=== PATIENT | female | born 1975 | race Caucasian/White ===

== ENCOUNTER 2019-07-03 14:17 | Outpatient (REF) | payer MEDICAID, SELFPAY ==
[2019-07-03 22:06] LABS: Abs Immature Grans 0.01 k/cumm (0.0-0.09); Absolute Basophil Count 0.01 k/cumm (0.0-0.2); Absolute Lymphocyte Count 1.43 k/cumm (1.2-3.4); Absolute Monocyte Count 0.61 k/cumm (0.11-0.7); Basophils % 0.2; Eosinophils % 1.5; HCT 43.1 % (36.0-46.0); Immature Grans % 0.2 %; Lymphocytes % 21.5; Mean Corp. HGB Concentration 32.5 g/dL (32.0-36.0); Mean Corpuscular Hemoglobin 29.5 pg (27.0-33.0); Mean Corpuscular Volume 90.9 fL (80-95); Mean Platelet Volume 11.3 fL (8.0-11.0); Monocytes % 9.2; Neutrophils % 67.4; Platelet Count 309 x1000/uL (130-400); RBC 4.74 m/cumm (4.00-5.20); RBC Distribution Width 13.5 % (11.7-14.6); White Blood Cell Count 6.66 k/cumm (4.4-10.8)
[2019-07-03 22:35] LABS: TSH 4.05 uIU/mL (0.36-3.74)
[2019-07-05 11:33] LABS: FSH 6.1 mIU/mL (See Note)
== END 2019-07-03 14:37 ==
LOC: NCHCN 14:17
PROVIDERS: PCP Nurse Practitioner Family; Visit Provider Nurse Practitioner Family
DX: R61 Generalized hyperhidrosis (principal)
CPT/HCPCS: 83001; 84443; 85025

== ENCOUNTER 2019-10-06 09:50 | Outpatient (REF) | payer MEDICAID, SELFPAY ==
[2019-10-06 21:19] LABS: FREE T4 1.09 ng/dL (0.76-1.46)
[2019-10-11 09:18] LABS: Thyroglobulin Antibody 109 U/mL (<=60); Thyroperoxidase Antibody 680 U/mL (<=60)
== END 2019-10-06 10:10 ==
LOC: NCHCN 09:50
PROVIDERS: PCP Nurse Practitioner Family; Visit Provider Nurse Practitioner Family
DX: R61 Generalized hyperhidrosis (principal)
CPT/HCPCS: 86376; 84439; 84443

== ENCOUNTER 2019-12-29 14:47 | Outpatient (REF) | payer MEDICAID, SELFPAY ==
[2019-12-29 21:11] LABS: TSH 1.77 uIU/mL (0.36-3.74)
== END 2019-12-29 15:07 ==
LOC: NCHCN 14:47
PROVIDERS: PCP Nurse Practitioner Family; Visit Provider Nurse Practitioner Family
DX: E03.9 Hypothyroidism, unspecified (principal)
CPT/HCPCS: 84443

== ENCOUNTER 2020-01-22 19:06 | Outpatient (REF) | payer MEDICAID, SELFPAY ==
[2020-01-24 16:01] LABS: Patient Race White; SARS-CoV-2 RNA Undetected (Undetected); SARS-CoV-2 Specimen Source Nasal
== END 2020-01-22 19:26 ==
LOC: NCHCN 19:06
PROVIDERS: PCP Nurse Practitioner Family; Visit Provider Nurse Practitioner Family
DX: J06.9 Acute upper respiratory infection, unspecified (principal)
CPT/HCPCS: U0003

== ENCOUNTER 2021-02-28 10:17 | Outpatient (REF) | payer MEDICAID, SELFPAY ==
[2021-02-28 14:43] LABS: Anion Gap 8.8 mmol/L (3-11); BUN 20 mg/dL (7-18); CO2 27.2 mmol/L (21.0-32.0); CREATININE 0.9 mg/dL (0.55-1.02); Calcium 8.8 mg/dL (8.5-10.1); Calculated LDL 200 mg/dL (<100); Chloride 103 mmol/L (98-107); Cholesterol 272 mg/dL (<200); Glucose 104 mg/dL (74-106); HDL Cholesterol 48 mg/dL (40-60); Potassium 4.3 mmol/L (3.5-5.1); Sodium 139 mmol/L (136-145); TSH 1.64 uIU/mL (0.36-3.74); Triglyceride 122 mg/dL (<150)
== END 2021-02-28 10:18 | disposition home or self-care (01) ==
LOC: NCHCN 10:17
PROVIDERS: PCP Nurse Practitioner Family; Visit Provider Nurse Practitioner Family
DX: E03.9 Hypothyroidism, unspecified (principal); Z13.220 Encounter for screening for lipoid disorders
CPT/HCPCS: 80048; 80061; 84443

== ENCOUNTER 2021-07-15 18:45 | Outpatient (REF) | payer MEDICAID, SELFPAY ==
[2021-07-15 14:48] LABS: Abs Immature Grans 0.01 10^3/uL (0.0-0.06); Absolute Basophil Count 0.01 10^3/uL (0.0-0.2); Absolute Lymphocyte Count 1.36 10^3/uL (1.2-3.4); Absolute Monocyte Count 0.63 10^3/uL (0.1-0.8); Absolute Neutrophil Count 5.06 10^3/uL (1.2-6.7); Basophils % 0.1; Eosinophils % 1.4; HCT 44.2 % (36.0-46.0); Immature Grans % 0.1; MCH 29.1 pg (27.0-33.0); MCHC 31.7 % (32.0-36.0); MCV 92 fL (80-95); MPV 11.5 fL (8.0-11.0); Monocytes % 8.8; Neutrophils % 70.6; Platelet Count 278 10^3/uL (130-400); RBC 4.81 10^6/uL (3.93-5.22); RDW 12.7 % (11.7-14.6); RDW-SD 43.4 fL; WBC 7.17 10^3/uL (4.4-10.8)
[2021-07-15 15:11] LABS: ALT 27 U/L (14-59); AST 16 U/L (15-37); Albumin 3.9 g/dL (3.4-5.0); Alkaline Phosphatase 52 U/L (46-116); Anion Gap 5.8 mmol/L (3-11); BUN 12 mg/dL (7-18); Bilirubin, Total 0.3 mg/dL (0.2-1.0); CO2 28.2 mmol/L (21.0-32.0); CREATININE 0.7 mg/dL (0.55-1.02); Calcium 8.8 mg/dL (8.5-10.1); Chloride 106 mmol/L (98-107); Glucose 89 mg/dL (74-106); Potassium 4.5 mmol/L (3.5-5.1); Sodium 140 mmol/L (136-145); Total Protein 6.6 g/dL (6.4-8.2)
== END 2021-07-15 18:46 | disposition home or self-care (01) ==
LOC: NCHCN 18:45
PROVIDERS: PCP Nurse Practitioner Family; Visit Provider Nurse Practitioner Family
DX: B97.89 Other viral agents as the cause of diseases classified elsewhere (principal)
CPT/HCPCS: 80053; 85025

== ENCOUNTER 2021-12-17 18:46 | Outpatient (REF) | payer MEDICAID, SELFPAY ==
[2021-12-17 14:00] LABS: Abs Immature Grans 0.02 10^3/uL (0.0-0.06); Absolute Basophil Count 0.03 10^3/uL (0.0-0.2); Absolute Lymphocyte Count 1.17 10^3/uL (1.2-3.4); Absolute Monocyte Count 0.62 10^3/uL (0.1-0.8); Absolute Neutrophil Count 4.55 10^3/uL (1.2-6.7); Basophils % 0.5; Eosinophils % 1.5; HCT 42.3 % (36.0-46.0); Immature Grans % 0.3; MCH 29.6 pg (27.0-33.0); MCHC 33.1 % (32.0-36.0); MCV 89 fL (80-95); MPV 11.4 fL (8.0-11.0); Monocytes % 9.6; Neutrophils % 70.1; Platelet Count 308 10^3/uL (130-400); RBC 4.73 10^6/uL (3.93-5.22); RDW 12.6 % (11.7-14.6); RDW-SD 41.6 fL; WBC 6.49 10^3/uL (4.4-10.8)
[2021-12-17 14:30] LABS: Anion Gap 7.2 mmol/L (3-11); BUN 15 mg/dL (7-18); CO2 26.8 mmol/L (21.0-32.0); CREATININE 0.7 mg/dL (0.55-1.02); Calcium 8.9 mg/dL (8.5-10.1); Chloride 103 mmol/L (98-107); Glucose 101 mg/dL (74-106); Potassium 4.2 mmol/L (3.5-5.1); Sodium 137 mmol/L (136-145); TSH 0.85 uIU/mL (0.36-3.74)
== END 2021-12-17 18:47 | disposition home or self-care (01) ==
LOC: NCHCN 18:46
PROVIDERS: PCP Nurse Practitioner Family; Visit Provider Family Medicine
DX: E03.9 Hypothyroidism, unspecified (principal); R20.0 Anesthesia of skin; M54.16 Radiculopathy, lumbar region
CPT/HCPCS: 80048; 84443; 85025

== ENCOUNTER 2022-08-03 14:15 | Outpatient (REF) | payer MEDICAID, SELFPAY ==
--- NOTE | 2022-08-03 13:00 | PAPFT_PTH ---
PATIENT: Sandy Moon LOC: [facility]#:[id number] AGE/SX: 46/F ROOM: RE08/03/[address]: Anjana Horta : 1975 BED: DIS: 08/03/2022 SPEC #: [id number] RECD: 08/04/22 12:39 STATUS: HUONG PÉREZ #: [id number] HAYDEE: 08/03/22 13:[address]: Anjana Arguelles DEPT: [facility] Cytology RECD BY: Azalea Torre ENTERED: 08/04/22 12:40 SP TYPE: PAPFT OTHR DR: Candida Wyman Tissues: 1 - CX/ENDOCX FOR PAP SMEARS Procedures: PAP THIN PREP/[facility] Screening HPV DNA PROBE Comments: [id number]
== END 2022-08-03 14:16 | disposition home or self-care (01) ==
LOC: NCHCN 14:15
PROVIDERS: PCP Nurse Practitioner Family; Visit Provider Nurse Practitioner Family
DX: Z12.4 Encounter for screening for malignant neoplasm of cervix (principal); Z11.51 Encounter for screening for human papillomavirus (HPV); Z87.410 Personal history of cervical dysplasia
CPT/HCPCS: 88142; 87624

== ENCOUNTER 2023-02-01 21:25 | Outpatient (REF) | payer MEDICAID, SELFPAY ==
[2023-02-01 22:01] LABS: Anion Gap 8.8 mmol/L (3-11); BUN 10 mg/dL (7-18); CO2 28.2 mmol/L (21.0-32.0); CREATININE 0.7 mg/dL (0.55-1.02); Calcium 9.1 mg/dL (8.5-10.1); Calculated LDL 122 mg/dL (<100); Chloride 101 mmol/L (98-107); Cholesterol 196 mg/dL (<200); Estimated GFR 108.62 (mL/min/1.73m2); Glucose 97 mg/dL (74-106); HDL Cholesterol 60 mg/dL (40-60); Potassium 4.3 mmol/L (3.5-5.1); Sodium 138 mmol/L (136-145); TSH (W/Ref FT4) 2.73 uIU/mL (0.36-3.74); Triglyceride 72 mg/dL (<150)
== END 2023-02-01 21:26 | disposition home or self-care (01) ==
LOC: LBN 21:25
PROVIDERS: PCP Nurse Practitioner Family; Visit Provider Nurse Practitioner Family
DX: E78.5 Hyperlipidemia, unspecified (principal); E03.9 Hypothyroidism, unspecified
CPT/HCPCS: 80048; 80061; 84443

== ENCOUNTER 2023-06-04 09:56 | Outpatient (REF) | payer MEDICAID, SELFPAY ==
[2023-06-04 14:47] LABS: Abs Immature Grans 0.03 10^3/uL (0.0-0.06); Absolute Basophil Count 0.02 10^3/uL (0.0-0.2); Absolute Eosinophil Count 0.14 10^3/uL (0.0-0.7); Absolute Lymphocyte Count 1.24 10^3/uL (1.2-3.4); Absolute Monocyte Count 0.56 10^3/uL (0.1-0.8); Absolute Neutrophil Count 6.04 10^3/uL (1.2-6.7); Basophils % 0.2; Eosinophils % 1.7; HGB 13.8 g/dL (11.2-15.7); Immature Grans % 0.4; Lymphocytes % 15.4; MCH 29.7 pg (27.0-33.0); MCHC 31.4 % (32.0-36.0); MCV 95 fL (80-95); MPV 11.4 fL (8.0-11.0); Neutrophils % 75.3; Platelet Count 238 10^3/uL (130-400); RBC 4.65 10^6/uL (3.93-5.22); RDW 13.1 % (11.7-14.6); RDW-SD 44.8 fL; WBC 8.03 10^3/uL (4.4-10.8)
[2023-06-04 15:05] LABS: Anion Gap 9.5 mmol/L (3-11); BUN 13 mg/dL (7-18); CO2 25.5 mmol/L (21.0-32.0); CREATININE 0.8 mg/dL (0.55-1.02); Calcium 8.9 mg/dL (8.5-10.1); Chloride 106 mmol/L (98-107); Estimated GFR 92.54 (mL/min/1.73m2); Glucose 108 mg/dL (74-106); Potassium 4.2 mmol/L (3.5-5.1); Sodium 141 mmol/L (136-145)
== END 2023-06-04 09:57 | disposition home or self-care (01) ==
LOC: LBN 09:56
PROVIDERS: PCP Nurse Practitioner Family; Visit Provider Orthopaedic Surgery Orthopaedic Surgery of the Spine
DX: M51.16 Intervertebral disc disorders with radiculopathy, lumbar region (principal); Z98.890 Other specified postprocedural states
CPT/HCPCS: 80048; 85025

== ENCOUNTER 2023-08-02 10:45 | Outpatient (REF) | payer SELFPAY ==
--- NOTE | 2023-08-02 09:10 | PAPFT_PTH ---
PATIENT: Sandy Moon LOC: [facility]#:[id number] AGE/SX: 47/F ROOM: RE08/02/[address]: Anjana Horta : 1975 BED: DIS: 08/02/2023 SPEC #: [id number] RECD: 08/02/23 18:09 STATUS: HUONG REBlaze #: [id number] HAYDEE: 08/02/23 09:[address]: Anjana Arguelles DEPT: [facility] Cytology RECD BY: Azalea Torre ENTERED: 08/02/23 18:09 SP TYPE: PAPFT KAELYN DR: Candida Wyman Tissues: 1 - CX/ENDOCX FOR PAP SMEARS Procedures: PAP THIN PREP/[facility] Screening HPV DNA PROBE Comments: [id number]
== END 2023-08-02 10:46 | disposition home or self-care (01) ==
LOC: NCHCN 10:45
PROVIDERS: PCP Nurse Practitioner Family; Visit Provider Nurse Practitioner Family
DX: Z12.4 Encounter for screening for malignant neoplasm of cervix (principal); Z00.01 Encounter for general adult medical examination with abnormal findings; Z90.710 Acquired absence of both cervix and uterus
CPT/HCPCS: 88142; 87624

== ENCOUNTER 2024-09-11 09:21 | Outpatient (REF) | payer SELFPAY ==
[2024-09-11 15:39] LABS: TSH 1.46 uIU/mL (0.36-3.74)
== END 2024-09-11 09:22 | disposition home or self-care (01) ==
LOC: NCHCN 09:21
PROVIDERS: PCP Nurse Practitioner Family; Visit Provider Nurse Practitioner Family
DX: E03.9 Hypothyroidism, unspecified (principal)
CPT/HCPCS: 84443

== ENCOUNTER 2024-09-19 16:12 | Outpatient (REF) | payer SELFPAY ==
--- NOTE | 2024-09-19 09:45 | PAPFT_PTH ---
PATIENT: Sandy Moon LOC: [facility]#:[id number] AGE/SX: 48/F ROOM: RE09/19/[address]: Anjana Horta : 1975 BED: DIS: 09/19/2024 SPEC #: [id number] RECD: 09/19/24 18:08 STATUS: HUONG REBlaze #: [id number] HAYDEE: 09/19/24 09:[address]: Anjana Arguelles DEPT: [facility] Cytology RECD BY: Azalea Torre ENTERED: 09/19/24 18:09 SP TYPE: PAPFT OTHR DR: Candida Wyman Tissues: 1 - CX/ENDOCX FOR PAP SMEARS Procedures: PAP THIN PREP/[facility] Screening HPV DNA PROBE Comments: [id number] (HPV 16 & 18/45)
== END 2024-09-19 16:13 | disposition home or self-care (01) ==
LOC: LBN 16:12
PROVIDERS: PCP Nurse Practitioner Family; Visit Provider Nurse Practitioner Family
DX: Z12.4 Encounter for screening for malignant neoplasm of cervix (principal); Z00.00 Encounter for general adult medical examination without abnormal findings
CPT/HCPCS: 88142; 87624